=== PATIENT | male | born 1990 | race Two or more races ===

== ENCOUNTER 2023-02-24 08:49 | Emergency (ER) | payer OTHER ==
[2023-02-24 09:07] VITALS: BP 116/75; PULSE 93; RESP 20; TEMP 98.8; BMI 22.3
[2023-02-24] MEDS ORDERED: KETOROLAC TROMETHAMINE 15 MG/ML VIAL IVPUSH ONE (09:53)
[2023-02-24] MEDS ORDERED: SODIUM CHLORIDE 0.9% 500 ML INFUS.BAG IV ONE (09:53)
[2023-02-24] MEDS ORDERED: KETOROLAC TROMETHAMINE 15 MG/ML VIAL ONE (10:04)
[2023-02-24] MEDS ORDERED: DEXAMETHASONE SOD PHOSPHATE 10 MG/1 ML VIAL IVPUSH ONE (10:06)
[2023-02-24] MEDS ORDERED: DEXAMETHASONE SOD PHOSPHATE 10 MG/1 ML VIAL ONE (10:26)
[2023-02-24 12:32] LABS: BASO % 0.1 % (0-2.0); EOS % 0.1 % (0-4.5); HEMATOCRIT 41.5 % (35.4-49); HEMOGLOBIN 13.5 GM/dL (11.7-16.9); LYMPH % 9.6 % (8-40); MCHC 32.6 g/dl (32.0-35.9); MEAN CELL VOLUME 61.2 fl (80-96); MEAN PLT VOLUME 8.9 fl (7.5-11.1); MONO % 7.6 % (3.8-10.2); NEUT % 82.6 % (42.8-82.8); PLATELET COUNT 244 10^3/uL (134-434); RBC 6.78 M/mm3 (4.00-5.60); RDW 14.9 % (11.9-15.9); WHITE BLOOD COUNT 16.2 K/mm3 (4.0-10.0)
[2023-02-24 12:33] LABS: MCH 19.9 pg (25.7-33.7)
[2023-02-24 12:49] LABS: POTASSIUM 4.4 mmol/L (3.5-5.1)
[2023-02-24 12:52] LABS: ALBUMIN 4.1 g/dl (3.4-5.0); BLOOD UREA NITROGEN 12.6 mg/dL (7-18); CALCIUM 9.1 mg/dL (8.5-10.1)
[2023-02-24 12:55] LABS: CREATININE 0.9 mg/dL (0.55-1.3)
[2023-02-24 12:57] LABS: BILIRUBIN,TOTAL 0.6 mg/dL (0.2-1); TOT PROT 7.8 g/dl (6.4-8.2)
[2023-02-24 13:15] LABS: ANISOCYTOSIS 2+; MACROCYTOSIS 0
== END 2023-02-24 15:16 | disposition left against medical advice (07) ==
LOC: JER 08:49
PROC: 3E033GC Introduction of Other Therapeutic Substance into Peripheral Vein, Percutaneous Approach (ICD-10-PCS; principal; 2023-02-24)
PROC: 3E0333Z Introduction of Anti-inflammatory into Peripheral Vein, Percutaneous Approach (ICD-10-PCS; 2023-02-24)
DX: R07.0 Pain in throat (principal); R13.10 Dysphagia, unspecified; R50.9 Fever, unspecified; J02.9 Acute pharyngitis, unspecified; Z20.822 Contact with and (suspected) exposure to COVID-19
CPT/HCPCS: 0241U-QW; 36415; 80053; 82962; 85025; 99284-25; J1100

== ENCOUNTER 2023-02-25 05:23 | Emergency (ER) | payer OTHER ==
[2023-02-25 05:31] VITALS: BMI 22.3
[2023-02-25] MEDS ORDERED: KETOROLAC TROMETHAMINE 30 MG/1 ML VIAL IM ONE (05:45)
[2023-02-25] MEDS ORDERED: DEXAMETHASONE SOD PHOSPHATE 10 MG/1 ML VIAL IM ONE (05:46)
[2023-02-25] MEDS ORDERED: SODIUM CHLORIDE 0.9% 500 ML INFUS.BAG IV ONE (05:48)
[2023-02-25] MEDS ORDERED: DEXAMETHASONE SOD PHOSPHATE 10 MG/1 ML VIAL ONE (05:54)
[2023-02-25] MEDS ORDERED: KETOROLAC TROMETHAMINE 30 MG/1 ML VIAL ONE (05:55)
[2023-02-25] MEDS ORDERED: CLINDAMYCIN 600MG PREMIX IVPB 600 MG/50 ML BAG IVPB ONE ×2 (06:00→06:18)
[2023-02-25] MEDS ORDERED: DEXAMETHASONE SOD PHOSPHATE 10 MG/1 ML VIAL IVPUSH ONE (06:15)
[2023-02-25] MEDS ORDERED: KETOROLAC TROMETHAMINE 30 MG/1 ML VIAL IVPUSH ONE (06:15)
[2023-02-25 09:57] VITALS: RESP 18
[2023-02-25] MEDS ORDERED: MIDAZOLAM HCL 2 MG/2 ML SINGLE DOSE VIAL IVPUSH ONE (11:25)
[2023-02-25] MEDS ORDERED: MIDAZOLAM HCL 2 MG/2 ML SINGLE DOSE VIAL ONE (11:31)
[2023-02-25] MEDS ORDERED: morphine CARPU-JECT 2 MG/1 ML DISP.SYRIN IVPUSH ONE ×3 (13:22→22:43)
[2023-02-25] MEDS ORDERED: morphine CARPU-JECT 4 MG/1 ML DISP.SYRIN IVPUSH ONE (15:43)
[2023-02-25] MEDS ORDERED: morphine SULFATE 4 MG/ML VIAL ONE (16:25)
[2023-02-25] MEDS ORDERED: ACETAMINOPHEN 1000 MG/100 ML BAG IVPB ONE (19:50)
[2023-02-25] MEDS ORDERED: ACETAMINOPHEN INJECTION 100 ML IVPB ONE (20:30)
[2023-02-25 23:30] VITALS: BP 107/70; PULSE 60; TEMP 98.6
== END 2023-02-25 23:55 | disposition short-term general hospital (02) ==
LOC: JER 05:23
PROC: 0C9PXZZ Drainage of Tonsils, External Approach (ICD-10-PCS; principal; 2023-02-25)
PROC: 3E03329 Introduction of Other Anti-infective into Peripheral Vein, Percutaneous Approach (ICD-10-PCS; 2023-02-25)
PROC: 3E033NZ Introduction of Analgesics, Hypnotics, Sedatives into Peripheral Vein, Percutaneous Approach (ICD-10-PCS; 2023-02-25)
PROC: 3E033GC Introduction of Other Therapeutic Substance into Peripheral Vein, Percutaneous Approach (ICD-10-PCS; 2023-02-25)
PROC: 3E0333Z Introduction of Anti-inflammatory into Peripheral Vein, Percutaneous Approach (ICD-10-PCS; 2023-02-25)
PROC: 3E033GC Introduction of Other Therapeutic Substance into Peripheral Vein, Percutaneous Approach (ICD-10-PCS; 2023-02-25)
PROC: 3E033GC Introduction of Other Therapeutic Substance into Peripheral Vein, Percutaneous Approach (ICD-10-PCS; 2023-02-25)
PROC: 3E033GC Introduction of Other Therapeutic Substance into Peripheral Vein, Percutaneous Approach (ICD-10-PCS; 2023-02-25)
PROC: 3E033GC Introduction of Other Therapeutic Substance into Peripheral Vein, Percutaneous Approach (ICD-10-PCS; 2023-02-25)
PROC: 3E033GC Introduction of Other Therapeutic Substance into Peripheral Vein, Percutaneous Approach (ICD-10-PCS; 2023-02-25)
DX: R07.0 Pain in throat (principal); J36 Peritonsillar abscess; R13.10 Dysphagia, unspecified; J02.9 Acute pharyngitis, unspecified
CPT/HCPCS: 70491-TC; 99285-25; J1100; Q9967

== ENCOUNTER 2023-06-24 10:28 | Emergency (ER) | payer OTHER ==
[2023-06-24 10:41] VITALS: BP 131/100; PULSE 78; RESP 18; TEMP 98.1; BMI 25.1
[2023-06-24] MEDS ORDERED: morphine CARPU-JECT 4 MG/1 ML DISP.SYRIN IVPUSH ONE (11:09)
[2023-06-24] MEDS ORDERED: SODIUM CHLORIDE 1,000 ML IV ONE (11:09)
[2023-06-24] MEDS ORDERED: METOCLOPRAMIDE HCL INJECTION 10 MG/2 ML VIAL IVPUSH ONE (11:15)
[2023-06-24] MEDS ORDERED: METOCLOPRAMIDE HCL INJECTION 10 MG/2 ML VIAL ONE (11:25)
[2023-06-24] MEDS ORDERED: morphine SULFATE 4 MG/ML VIAL ONE (11:25)
[2023-06-24] MEDS ORDERED: METOCLOPRAMIDE HCL INJECTION 10 MG/2 ML VIAL IVPB ONE (11:27)
[2023-06-24 12:07] LABS: BASO % 0.3 % (0-2.0); EOS % 0.6 % (0-4.5); HEMATOCRIT 42.6 % (35.4-49); HEMOGLOBIN 13.3 GM/dL (11.7-16.9); LYMPH % 40.5 % (8-40); MCHC 31.3 g/dl (32.0-35.9); MEAN CELL VOLUME 61.4 fl (80-96); MEAN PLT VOLUME 8.3 fl (7.5-11.1); MONO % 10.2 % (3.8-10.2); NEUT % 48.4 % (42.8-82.8); PLATELET COUNT 233 10^3/uL (134-434); RBC 6.94 M/mm3 (4.00-5.60); RDW 15.3 % (11.9-15.9); WHITE BLOOD COUNT 7.5 K/mm3 (4.0-10.0)
[2023-06-24 12:09] LABS: MCH 19.2 pg (25.7-33.7)
[2023-06-24 12:25] LABS: CALCIUM 9.9 mg/dL (8.5-10.1)
[2023-06-24 12:26] LABS: ALBUMIN 3.9 g/dl (3.4-5.0); BLOOD UREA NITROGEN 21.8 mg/dL (7-18); MAGNESIUM 1.9 mg/dL (1.8-2.4)
[2023-06-24 12:29] LABS: BILIRUBIN,DIRECT 0.1 mg/dL (0.0-0.2)
[2023-06-24 12:31] LABS: BILIRUBIN,TOTAL 0.5 mg/dL (0.2-1); CREATININE 0.9 mg/dL (0.55-1.3); TOT PROT 7.6 g/dl (6.4-8.2)
[2023-06-24 12:57] LABS: ANISOCYTOSIS 3+; MACROCYTOSIS 0
[2023-06-24] MEDS ORDERED: FAMOTIDINE 20 MG TABLET PO ONE (13:06)
[2023-06-24] MEDS ORDERED: MAG HYDROX/AL HYDROX/SIMETH 30 ML UNIT-DOSE CUP PO ONE (14:13)
[2023-06-24] MEDS ORDERED: ACETAMINOPHEN 1000 MG/100 ML BAG IVPB ONE (14:13)
[2023-06-24] MEDS ORDERED: FAMOTIDINE 20 MG TABLET ONE (14:14)
[2023-06-24] MEDS ORDERED: ACETAMINOPHEN INJECTION 100 ML IVPB ONE (14:15)
[2023-06-24] MEDS ORDERED: MAG HYDROX/AL HYDROX/SIMETH 30 ML UNIT-DOSE CUP ONE (14:16)
[2023-06-24 14:51] LABS: VENOUS BASE EXCESS -0.6 mmol/L (-2-2); VENOUS O2 SATURATION 26.6 % (70-80); VENOUS PCO2 49.8 mmHg (38-52); VENOUS PH 7.333 (7.310-7.410)
[2023-06-24 15:22] LABS: CHOLESTEROL 157 mg/dL (50-200)
[2023-06-24 15:23] LABS: LDL CHOLESTEROL (ONLY SJRH) 93 mg/dL (5-100)
[2023-06-24 15:26] LABS: HDL CHOLESTEROL 46 mg/dL (40-60)
== END 2023-06-24 16:37 | disposition home or self-care (01) ==
LOC: JER 10:28
PROC: 3E033NZ Introduction of Analgesics, Hypnotics, Sedatives into Peripheral Vein, Percutaneous Approach (ICD-10-PCS; principal; 2023-06-24)
PROC: 3E033GC Introduction of Other Therapeutic Substance into Peripheral Vein, Percutaneous Approach (ICD-10-PCS; 2023-06-24)
PROC: 3E033GC Introduction of Other Therapeutic Substance into Peripheral Vein, Percutaneous Approach (ICD-10-PCS; 2023-06-24)
PROC: 3E0337Z Introduction of Electrolytic and Water Balance Substance into Peripheral Vein, Percutaneous Approach (ICD-10-PCS; 2023-06-24)
DX: R10.13 Epigastric pain (principal); E11.69 Type 2 diabetes mellitus with other specified complication; R11.2 Nausea with vomiting, unspecified
CPT/HCPCS: 36415; 74177-TC; 76705-TC; 80053; 80061; 82010; 82248; 82803; 83605; 83690; 83735; 85025; 93005; 93010; 99285-25

== ENCOUNTER 2023-06-30 07:45 | Emergency (ER) | payer OTHER ==
[2023-06-30 07:49] VITALS: BMI 18.4
[2023-06-30] MEDS ORDERED: morphine CARPU-JECT 4 MG/1 ML DISP.SYRIN IVPUSH ONE (08:17)
[2023-06-30] MEDS ORDERED: ONDANSETRON 4 MG/2 ML VIAL IVPUSH ONE (08:19)
[2023-06-30] MEDS ORDERED: MAG HYDROX/AL HYDROX/SIMETH 30 ML UNIT-DOSE CUP PO ONE (08:23)
[2023-06-30] MEDS ORDERED: FAMOTIDINE 20 MG/50 ML IVPB 20 MG/50 ML MG IVPB ONE ×2 (08:23→08:42)
[2023-06-30] MEDS ORDERED: ACETAMINOPHEN 1000 MG/100 ML BAG IVPB ONE (08:23)
[2023-06-30] MEDS ORDERED: LACTATED RINGERS SOLUTION 1000 ML INFUS.BAG IV ONE (08:30)
[2023-06-30] MEDS ORDERED: ACETAMINOPHEN INJECTION 100 ML IVPB ONE (08:41)
[2023-06-30] MEDS ORDERED: ONDANSETRON 4 MG/2 ML VIAL ONE (08:41)
[2023-06-30] MEDS ORDERED: MAG HYDROX/AL HYDROX/SIMETH 30 ML UNIT-DOSE CUP ONE (08:42)
[2023-06-30 09:07] LABS: BASO % 0.3 % (0-2.0); EOS % 0.4 % (0-4.5); HEMATOCRIT 43.5 % (35.4-49); HEMOGLOBIN 13.6 GM/dL (11.7-16.9); MCHC 31.2 g/dl (32.0-35.9); MEAN CELL VOLUME 62.3 fl (80-96); MEAN PLT VOLUME 8.8 fl (7.5-11.1); MONO % 6.3 % (3.8-10.2); PLATELET COUNT 369 10^3/uL (134-434); RBC 6.99 M/mm3 (4.00-5.60); RDW 15.2 % (11.9-15.9); WHITE BLOOD COUNT 13.3 K/mm3 (4.0-10.0)
[2023-06-30 09:13] LABS: MCH 19.4 pg (25.7-33.7)
[2023-06-30 09:14] LABS: POTASSIUM 4.5 mmol/L (3.5-5.1)
[2023-06-30 09:16] LABS: MAGNESIUM 1.8 mg/dL (1.8-2.4)
[2023-06-30 09:17] LABS: ALBUMIN 4.2 g/dl (3.4-5.0); CALCIUM 10.2 mg/dL (8.5-10.1)
[2023-06-30 09:18] LABS: BLOOD UREA NITROGEN 17.8 mg/dL (7-18)
[2023-06-30 09:19] LABS: CREATININE 0.9 mg/dL (0.55-1.3)
[2023-06-30 09:21] LABS: PHOSPHOROUS 2.9 mg/dL (2.5-4.9)
[2023-06-30 09:22] LABS: BILIRUBIN,TOTAL 0.6 mg/dL (0.2-1)
[2023-06-30] MEDS ORDERED: HALOPERIDOL LACTATE 5 MG/ML IM ONE (09:28)
[2023-06-30] MEDS ORDERED: DICYCLOMINE HCL 20 MG/2 ML AMPUL IM ONE (09:28)
[2023-06-30] MEDS ORDERED: HALOPERIDOL LACTATE 5 MG/ML IVPUSH ONE (09:36)
[2023-06-30] MEDS ORDERED: HALOPERIDOL LACTATE 5 MG/ML ONE ×2 (09:37→09:39)
[2023-06-30] MEDS ORDERED: SUCRALFATE 1 GM TABLET (FP) PO ONE (10:31)
[2023-06-30 11:05] VITALS: BP 101/67; PULSE 63; RESP 18; TEMP 98.2
[2023-06-30 13:26] LABS: ANISOCYTOSIS 1+; MACROCYTOSIS 0
== END 2023-06-30 11:13 | disposition home or self-care (01) ==
LOC: JER 07:45
PROC: 3E033GC Introduction of Other Therapeutic Substance into Peripheral Vein, Percutaneous Approach (ICD-10-PCS; principal; 2023-06-30)
PROC: 3E033NZ Introduction of Analgesics, Hypnotics, Sedatives into Peripheral Vein, Percutaneous Approach (ICD-10-PCS; 2023-06-30)
PROC: 3E033GC Introduction of Other Therapeutic Substance into Peripheral Vein, Percutaneous Approach (ICD-10-PCS; 2023-06-30)
PROC: 3E023GC Introduction of Other Therapeutic Substance into Muscle, Percutaneous Approach (ICD-10-PCS; 2023-06-30)
PROC: 3E023GC Introduction of Other Therapeutic Substance into Muscle, Percutaneous Approach (ICD-10-PCS; 2023-06-30)
DX: R10.13 Epigastric pain (principal); R11.2 Nausea with vomiting, unspecified
CPT/HCPCS: 36415; 80053; 80061; 82962; 83690; 83735; 84100; 84484; 85025; 93005; 93010; 99284-25